=== PATIENT | male | born 1955 | race Caucasian/White ===

== ENCOUNTER 2023-09-03 08:37 | Outpatient (REF) | payer MEDICARE, SELFPAY ==
--- NOTE | ~2023-09-03 | XR_ITS ---
EXAMINATION: XR SHOULDER, RIGHT CLINICAL INFORMATION: Pain in right shoulder following fall COMPARISON: None available. TECHNIQUE: AP external rotation, Grashey, scapular Y, and axillary views of the right shoulder. FINDINGS: There is no evidence of fracture or dislocation. No changes of degenerative osteoarthritis. There is minimal soft tissue calcification adjacent to the greater tuberosity suggestive for calcified tendinitis. Acromioclavicular joints revealed changes of mild osteoarthritis. The rest of soft tissues are normal. XR/XR shoulder RT min 2V IMPRESSION: Mild calcified tendinitis.
[2023-09-03 10:12] LABS: MANUAL DIFF FLAG NO
[2023-09-03 10:25] LABS: Basophils Absolute Auto 0.1 X10*3/uL (0.0-0.2); Basophils Percent Auto 0.6 % (0-2); Eosinophils Absolute Auto 0.3 X10*3/uL (0.0-0.4); Hematocrit 42.7 % (42.0-52.0); Hemoglobin 14.9 g/dl (14.0-18.0); Imm Gran Abs Auto 0.03 X10*3/uL (0.00-0.03); Imm Gran Pct Auto 0.3 % (0.0-0.4); Lymphocytes Absolute Auto 2.7 X10*3/uL (1.2-4.9); Lymphocytes Percent Auto 30.5 % (20-40); Mean Corpuscular HGB Conc 34.9 g/dl (31.0-36.0); Mean Corpuscular Volume 91.6 fL (80.0-98.0); Mean Platelet Volume 11.6 fL (9.4-12.4); Monocytes Absolute Auto 0.7 X10*3/uL (0.1-1.2); Monocytes Percent Auto 7.6 % (2-11); Neutrophils Absolute Auto 5.1 x10*3/uL (2.0-8.3); Platelet Count 172 X10*3/uL (160-400); Red Blood Count 4.66 X10*6/uL (4.60-5.80); Red Cell Distribution Width 12.5 % (11.0-16.0); White Blood Count 8.8 X10*3/uL (4.8-10.8)
[2023-09-03 10:44] LABS: Estimated Average Glucose 108 mg/dL; Hemoglobin A1c % 5.4 % (<6.0)
[2023-09-03 10:54] LABS: Anion Gap 12 (12-20); Blood Urea Nitrogen 15 mg/dL (9-16); Calcium 9.6 mg/dL (8.4-10.2); Carbon Dioxide 26 mmol/L (22-29); Chloride 106 mmol/L (96-108); Estimated Glomerular Filt Rate > 60; Glucose Random 99 mg/dL (60-115); Potassium 4.3 mmol/L (3.3-5.1); Sodium 140 mmol/L (135-145)
== END 2023-09-03 08:38 | disposition home or self-care (01) ==
LOC: HO.HMGCX 08:37
PROVIDERS: PCP Internal Medicine; Visit Provider Internal Medicine
DX: M25.511 Pain in right shoulder (principal); R73.09 Other abnormal glucose
CPT/HCPCS: 36415; 73030; 80048; 83036; 85025

== ENCOUNTER 2023-10-02 09:21 | Outpatient (AMB) | payer MEDICARE, SELFPAY ==
--- NOTE | 2023-10-02 09:22 | A.OFFVIS_ITS ---
Intake Visit Reasons: Right shoulder pain Intake Note: Homero is a 67 year old male who presents with complaints of progressively worsening right shoulder pain and weakness. The patient states that his shoulder pain began several years ago. He was told at that time that he has ?degenerative arthritis? in his right shoulder. The patient states that he aggravated his right shoulder several months ago when he fell directly onto it. Since that time he has had difficulty lifting his right hand above shoulder h eight. Has failed the last 6 weeks of conservative treatment. Has done physical therapy exercises which aggravated his pain. He has also tried Tylenol and anti-inflammatory medicines which gave him minimal relief. Allergies No Known Allergies Allergy (Verified 10/02/23 09:23) Medication List - Last Reconciled 10/02/23 by Trell Aragon MD apixaban (Eliquis) 5 mg PO BID aspirin (Adult Aspirin Regimen) 81 mg PO DAILY citalopram 20 mg PO DAILY furosemide 40 mg PO DAILY lisinopril 40 mg PO DAILY mirtazapine 15 mg PO BEDTIME potassium chloride ER 10 mEq PO BID Physical Exam Const Other: Well-nourished well-developed very friendly male awake alert and oriented x3 in no acute distress Extrem Other: Bilateral upper extremity examination shows good capillary refill, no skin lesions noted, normal sensation light touch Right shoulder examination shows full passive range of motion but limited active range of motion when compared to his left shoulder, 3/5 strength with richards praspinatus testing, positive impingement signs, tenderness over his acromioclavicular joint, no instability Results Reviewed Results Reviewed: X-rays of the patient's right shoulder taken previously show severe acromioclavicular joint narrowing, a type 2 acromion, no acute bony abnormalities Assessment & Plan Assessment & Plan (1) Right shoulder pain: Code(s): M25.511 - Pain in right shoulder Plan Mr. Calle presents with progressively worsening right shoulder pain and weakness most likely due to a full-thickness rotator cuff tear. Thus, I will send the patient for an MRI of his right shoulder for further evaluation. I will see him back once the MRI is completed to discuss the findings and treatment options. Will continue with his range of motion exercises in the meantime to prevent stiffness. Feel free to call me at any time should questions regarding his orthopedic management arise. Thank you very much for asking me to see this very friendly gentleman. I spent 20 minutes in reviewing the patient's records and imaging studies, seeing the patient and documenting in the medical record. Orders: Orders MR shoulder RT wo con Today M25.311 - Other instability, right shoulder Coding Level of Care Code New Pt Level 3 (32291) Diagnoses Right shoulder pain M25.511
== END 2023-10-02 09:44 | disposition home or self-care (01) ==
PROVIDERS: PCP Internal Medicine; Visit Provider Orthopaedic Surgery
DX: M25.511 Pain in right shoulder (principal)
CPT/HCPCS: 99203

== ENCOUNTER → 2023-10-02 09:21 | Outpatient (BNVA) | payer MEDICARE, SELFPAY | PROVIDERS: PCP Internal Medicine; Visit Provider Orthopaedic Surgery | DX: M25.511 Pain in right shoulder (principal); M25.811 Other specified joint disorders, right shoulder | CPT/HCPCS: 99202 ==

== ENCOUNTER 2024-01-24 06:35 | Outpatient (REF) | payer MEDICARE, SELFPAY ==
[2024-01-24 10:10] LABS: MANUAL DIFF FLAG NO
[2024-01-24 10:11] LABS: Basophils Absolute Auto 0.1 X10*3/uL (0.0-0.2); Basophils Percent Auto 0.5 % (0-2); Eosinophils Absolute Auto 0.3 X10*3/uL (0.0-0.4); Hematocrit 42.7 % (42.0-52.0); Hemoglobin 14.3 g/dl (14.0-18.0); Imm Gran Abs Auto 0.03 X10*3/uL (0.00-0.03); Imm Gran Pct Auto 0.3 % (0.0-0.4); Lymphocytes Absolute Auto 2.6 X10*3/uL (1.2-4.9); Mean Corpuscular HGB Conc 33.5 g/dl (31.0-36.0); Mean Corpuscular Hemoglobin 31.6 pg (27.0-33.0); Mean Corpuscular Volume 94.3 fL (80.0-98.0); Mean Platelet Volume 11.3 fL (9.4-12.4); Monocytes Absolute Auto 0.8 X10*3/uL (0.1-1.2); Monocytes Percent Auto 7.9 % (2-11); Neutrophils Absolute Auto 6.8 x10*3/uL (2.0-8.3); Neutrophils Percent Auto 64.3 % (45-73); Platelet Count 188 X10*3/uL (160-400); Red Blood Count 4.53 X10*6/uL (4.60-5.80); Red Cell Distribution Width 12.7 % (11.0-16.0); White Blood Count 10.6 X10*3/uL (4.8-10.8)
[2024-01-24 10:56] LABS: Alanine Aminotransferase 68 U/L (0-40); Albumin Level 4.3 g/dL (3.5-5.0); Alkaline Phosphatase 71 U/L (39-117); Anion Gap 14 (12-20); Aspartate Amino Transferase 41 U/L (5-37); Bilirubin Total 0.6 mg/dL (0.0-1.0); Blood Urea Nitrogen 13 mg/dL (9-16); Calcium 9.7 mg/dL (8.4-10.2); Carbon Dioxide 27 mmol/L (22-29); Chloride 106 mmol/L (96-108); Cholesterol 195 mg/dL (<200); Estimated Glomerular Filt Rate > 60; Glucose Fasting 107 mg/dL (60-99); HDL Cholesterol 29 mg/dL (>40); LDL Cholesterol Calculated 108 mg/dL (<100); Potassium 4.1 mmol/L (3.3-5.1); Sodium 143 mmol/L (135-145); Total Protein 7.4 g/dL (6.5-8.0); Triglycerides 293 mg/dL (<150)
[2024-01-24 11:01] LABS: Prostate Specific Antigen 0.64 ng/mL (<0.05-4.0)
--- OUTSIDE RECORDS SUMMARY | 2024-01-29 04:37 | XMS_ITS | Continuity of Care Document ---
Author Organization [facility] Cardiac Jose salvatore Address [address] [place] [address] [place] [address]- Care Team Providers Care Tank Processor Name Role Phone Angelika PERRY, Giacomo Rollins Primary Care Physician [place] [facility] [place]23 - 01/[place]/24 [facility] Cardiac Surgery [address] [place] [address] Drive [address] [place], [place] [id number] Encounter Type: Triage Allergies, Adverse Reactions, Alerts Substance Criticality Severity Reaction Reaction Severity Status Wellbutrin Active Medications apixaban 5 mg oral tablet 1 tablet = 5 mg, By Mouth, 2 times a day, # 60 tablet, 0 Refills, Maintenance, 11/05/19 11:01:00 AM EDT, Tablet Start Date: 11/05/19 Status: Ordered Quantity: 60.0 Unit: tablet Repeat number: 1 aspirin 81 mg oral delayed release tablet 81 mg, By Mouth, Daily, # 30 tablet, Refills 0, Tot. Refills 0, Maintenance, 12/07/19 12:46:00 PM EDT, Route to Pharmacy Electronically, [facility], 178, cm, 12/07/19 12:46:00 EDT, Height, 87.1, kg, 12/01/19 5:58:00 EDT, Dry Weight Start Date: 12/07/19 Status: Ordered Quantity: 30.0 Unit: tablet Repeat number: 1 atorvastatin 80 mg oral tablet 1 tablet = 80 mg, By Mouth, Daily at bedtime, # 30 tablet, 0 Refills, Maintenance, 12/07/19 4:48:00PM EDT, Tablet, [facility] #[id number], 178, cm, 12/07/19 12:46:00 EDT, Height, 87.1, kg, 12/01/19 5:58:00 EDT, Dry Weight Start Date: 12/07/19 Status: Ordered Quantity: 30.0 Unit: tablet Repeat number: 1 Lasix 40 mg oral tablet 40 mg, 1, tablet, By Mouth, 2 times a day before breakfast and dinne, # 60 tablet, Refills 0, Tot. Refills 0, Maintenance, 12/07/19 12:46:00 PM EDT, Route to Pharmacy Electronically, [facility], 178, cm, 12/07/19 12:46:00 EDT, Height, 87.1, kg, 12/01/19 5:58:00 EDT, Dry Weight Start Date: 12/07/19 Status: Ordered Quantity: 60.0 Unit: tablet Repeat number: 1 lisinopril 20 mg oral tablet 40 mg, 2, tablet, By Mouth, Daily, # 30 tablet, Refills 0, Maintenance, 11/05/19 11:03:00 AM EDT Start Date: 11/05/19 Status: Ordered Quantity: 30.0 Unit: tablet Repeat number: 1 Multivitamin Daily, 0 Refills, Maintenance, 11/05/19 11:03:00 AM EDT Start Date: 11/05/19 Status: Ordered Repeat number: 1 potassium chloride 10 mEq oral tablet, extended release 2 tablet = 20 mEq, By Mouth, 2 times a day, # 120 tablet, 0 Refills, Maintenance, 12/07/19 12:46:00PM EDT, ER Tablet, [facility], 178, cm, 12/07/19 12:46:00 EDT, Height, 87.1, kg, 12/01/19 5:58:00 EDT, Dry Weight Start Date: 12/07/19 Status: Ordered Quantity: 120.0 Unit: tablet Repeat number: 1 Problem List Condition Confirmation Course Effective Dates Status Health St atus Informant Ascending aortic aneurysm dilatation Confirmed Active severe Aortic stenosis Confirmed Active CAD (coronary artery disease), 60% ostial RCA lesion. Confirmed Active Sinus bradycardia on ECG Confirmed 01/02/02 Active Ex-smoker, kate 2004 Confirmed Active Hard of hearing, bilateral hearing aids Confirmed Active HTN (hypertension) Confirmed Active Anxiety and depression Confirmed Active Left upper lobe pulmonary nodule measuring 3 mm Confirmed Active Obese class I Confirmed Active OA (osteoarthritis) of right shoulder Confirmed Active Atrial fibrillation and flutter Confirmed Active Pulmonary HTN Confirmed Active Patient Care team information Care Team Personnel Name: Kevin Vasques RN Position: S RN Member Role: Primary Care Nurse Name: Angelika PERRY, Giacomo Rollins Position: Reference Physician Member Role: PCP Address: [address] [place] [id number] Telecom: Name: Adri Solares RN Position: S RN Member Role: Primary Care Nurse Care Team Related Persons Name: KARLOS CASH Insurance Providers Guarantor name: LIYAH SHAILESH Health Plan Information #: 1 Payer: MEDICARE PART B OUTPT Member Number: NA Policy Number: NA Group Number: NA Health Plan Information #: 2 Payer: MEDEX Member Number: NA Policy Number: NA Group Number: NA
--- OUTSIDE RECORDS SUMMARY | 2024-01-29 04:37 | XMS_ITS | Continuity of Care Document ---
Author Organization [facility] Cardiac Jose salvatore Address [address] [place] [address] [place] [address]- Care Team Providers Care Manager Business Process Name Role Phone Angelika PERRY, Giacomo Rollins Primary Care Physician Encounter [facility] [place] Date(s): 12/26/23 - 01/25/24 [facility] Cardiac Surgery [address] [place] [address] Drive [address] [place], [place] [address] Encounter Type: Triage Allergies, Adverse Reactions, Alerts [...] 12:46:00 PM EDT, Route to Pharmacy Electronically, [facility], 178, cm, 12/07/19 12:46:00 EDT, Height, 87.1, kg, 12/01/19 5:58:00 EDT, Dry Weight Start Date: 12/07/19 Status: Ordered Quantity: 30.0 Unit: tablet Repeat number: 1 atorvastatin 80 mg oral tablet 1 tablet = 80 mg, By Mouth, Daily at bedtime, # 30 tablet, 0 Refills, Maintenance, 12/07/19 4:48:00PM EDT, Tablet, [facility] #[id number], 178, cm, 12/07/19 12:46:00 EDT, Height, 87.1, kg, 12/01/19 5:58:00 EDT, Dry Weight Start Date: 12/07/19 Status: Ordered Quantity: 30.0 Unit: tablet Repeat number: 1 Lasix 40 mg oral tablet 40 mg, 1, tablet, By Mouth, 2 times a day before breakfast and dinne, # 60 tablet, Refills 0, Tot. Refills 0, Maintenance, 12/07/19 12:46:00 PM EDT, Route to Pharmacy Electronically, [facility], 178, cm, 12/07/19 12:46:00 EDT, [...] Refills, Maintenance, 12/07/19 12:46:00PM EDT, ER Tablet, [facility], 178, cm, 12/07/19 12:46:00 EDT, [...] Position: Reference Physician Member Role: PCP Address: [address] [place] [id number] Telecom: Name: Adri Solares RN Position: S [...]
--- OUTSIDE RECORDS SUMMARY | 2024-01-29 04:37 | XMS_ITS | Continuity of Care Document ---
Author Organization [facility] Cardiac Jose salvatore Address [address] [place] [address] [place] [address]- Care Team Providers Care Business Resiliency Manager Name Role Phone Angelika PERRY, Giacomo Rollins Primary Care Physician [phone] Encounter [facility] [place](s[place] 12/30/23 - 01/06/24 [facility] Cardiac Surgery [address] [place] [address] Drive [address] [place] [address]- Attending Physician: Rd Galloway MD Referring Physician: Sandy Mccullough MD Encounter Type: Office Visit Allergies, Adverse Reactions, Alerts Substance Criticality Severity [...] 12:46:00 PM EDT, Route to Pharmacy Electronically, [facility], 178, cm, 12/07/19 12:46:00 EDT, Height, 87.1, kg, 12/01/19 5:58:00 EDT, Dry Weight Start Date: 12/07/19 Status: Ordered Quantity: 30.0 Unit: tablet Repeat number: 1 atorvastatin 80 mg oral tablet 1 tablet = 80 mg, By Mouth, Daily at bedtime, # 30 tablet, 0 Refills, Maintenance, 12/07/19 4:48:00PM EDT, Tablet, [facility][id number], 178, cm, 12/07/19 12:46:00 EDT, Height, 87.1, kg, 12/01/19 5:58:00 EDT, Dry Weight Start Date: 12/07/19 Status: Ordered Quantity: 30.0 Unit: tablet Repeat number: 1 Lasix 40 mg oral tablet 40 mg, 1, tablet, By Mouth, 2 times a day before breakfast and dinne, # 60 tablet, Refills 0, Tot. Refills 0, Maintenance, 12/07/19 12:46:00 PM EDT, Route to Pharmacy Electronically, [facility], 178, cm, 12/07/19 12:46:00 [...] Refills, Maintenance, 12/07/19 12:46:00PM EDT, ER Tablet, [facility], 178, cm, 12/07/19 12:46:00 [...] flutter Confirmed Active Pulmonary HTN Confirmed Active Vital Signs Most recent to oldest [Reference Range]: 1 2 Height 178 cm (01/01/24 8:38 AM) 178 cm (12/30/23 2:48 PM) Weight 104.9 kg (01/01/24 8:38 AM) 104.9 kg (12/30/23 2:48 PM) Oxygen Saturation [94-100 %] 95 % (12/30/23 2:48 PM) Pulse Rate [55-90 bpm] 75 bpm (12/30/23 2:48 PM) Body Mass Index [18.5-24.99 kg/m2] 33.11 kg/m2 *>HHI* (12/30/23 2:48 PM) Blood Pressure [90-138/55-84 mm Hg] 106/ 62mm Hg (12/30/23 2:48 PM) Respiratory Rate [16-30 br/min] 16 br/mi n (12/30/23 2:48 PM) Temperature [96.8-100.4 DegF] 100.2 DegF (12/30/23 2:48 PM) Mode of Delivery (Oxygen) Room air (12/30/23 2:48 PM) Blood pressure sites Arm, left (12/30/23 2:48 PM) Temperature Route Oral (12/30/23 2:48 PM) Dry Weight 104.09 kg (12/30/23 2:48 PM) Weight Obtained Via Patient/family state d (12/30/23 2:48 PM) Dry Weight Obtained Via Patient/family s tated (12/30/23 2:48 PM) Cardiac surgery Outpatient Note * Nilesh PERRY, Rd Hoffmann: PERFORM, MODIFY Event Display: Cardiac Surgery Note Office Authored Date: Patient: ??LIYAH CALLE ? Age:??68 Years?Sex:??Male?:??1955?? Provider Clinical Summary he is doing well since the surgical AVR, replacement of the ascending aorta, CABG x 1, and left sided MAZE procedure in November of 2019.?? On exam he has a low grade temperature of unclear etiology. The size of the aortic root and the aortic arch are both 4.2 cm and unchanged from the most previousCT scan in November of 2020.?? We would recommend a repeat echocardiogram to assess the degree of bioprosthetic valve??stenosis.?? We would also recommend an EKG to see if he is in NSR.?? We would recommend a repeat noncontrast CT scan in 2 years. Chief Complaint asc aoritc aneurysm He has no specific complaints History of Present Illness Mr. Calle has a history of atrial??fibrillation,??CAD, bicuspid aortic??valve with aortic stenosis and ascending aortic aneurysm. He??is now 4 years postop from a surgical AVR (25 mm Magna Ease), replacement of the ascending aorta (32 mm Gelweave tube graft), CABG x 1 (SV??to the RCA) and left sided MAZE procedure (PVI and IMANI ligation) in November of 2019.?? He is currently doing well with no specific complaints. He reports that he has no exercise restrictions and has no recent history ofchest discomfort or dyspnea.?? He has not see a tax advisor recently. A recent??surveillance CT scans shows that the aortic root at the level of the aortic sinuses measures 4.2 cm and is unchanged from the most recent chest CT scan in November of 2020. The aortic arch also measures 4.2 cm and is unchanged from the previous scan. It is unclear if he has had a recent EKG or echocardiogram. Review of Systems He continues to be on Eliquis. There has been no recent history of fever, chills, cough or nasal congestion. Physical Exam Vitals & Measurements T:??100.2?F?? HR:??75??(Peripheral)?? RR:??16?? BP:??106/62?? SpO2:??95%?? HT:??178??cm?? WT:??104.9??kg?? BMI:??33.11? General:?? Alert, pleasant ? HEENT: EOM full. Sclera non icteric ? Neck: Supple. No masses. No bruits + JVD to 8 cm ? Resp: Lungs are clear to auscultation ? CV:?? Right radial pulse 2+ and regular. Grade III/ systolic murmur heard loudest at the right and left sternal borders and radiating to the left carotid ? Extrem: No edema. ? Neuro:?? No focal deficits Assessment/Plan He has mild enlargement of the aortic root and the aortic arch which have not changed in size sincethe most previous CT scan 3 years ago. We would recommend a repeat noncontrast CT scan in??2 years.?? On exam he has a low grade fever with no overt signs of a respiratory illness. 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 We would recommend an echocardiogram and an EKG.?? If the EKG documentsNSR then we would advocate discontinuing the Eliquis. Patient Instructions Avoid heavy lifting and continue to keep the blood pressure within normal limits. Follow-Up Appointments No qualifying data available No heavy lifting. Avoid isometric exercises. Total Time Spent 45 minutes Problem List/Past Medical History Ongoing Anxiety and depression Ascending aortic aneurysm dilatation Atrial fibrillation and flutter CAD (coronary artery disease), 60% ostial RCA lesion. Ex-smoker, kate 2004 Hard of hearing, bilateral hearing aids HTN (hypertension) Left upper lobe pulmonary nodule measuring 3 mm OA (osteoarthritis) of right shoulder Obese class I Pulmonary HTN severe Aortic stenosis Sinus bradycardia on ECG Procedure/Surgical History ???Echocardiogram (10/01/2019) Medications apixaban 5 mg oral tablet, 5 mg= 1 tablet, By Mouth, 2 times a day aspirin 81 mg oral delayed release tablet, 81 mg, By Mouth, Daily atorvastatin 80 mg oral tablet, 80 mg= 1 tablet, By Mouth, Daily at bedtime Lasix 40 mg oral tablet, 40 mg= 1 tablet, By Mouth, 2 times a day before breakfast and dinne lisinopril 20 mg oral tablet, 40 mg= 2 tablet, By Mouth, Daily Multivitamin, Daily potassium chloride 10 mEq oral tablet, extended release, 20 mEq= 2 tablet, By Mouth, 2 times a day Allergies Wellbutrin Patient Care team information Care Team Personnel Name: Kevin Vasques RN Position: S RN Member Role: Primary Care Nurse Name: Giacomo Carney MD Position: Reference Physician Member Role: PCP Address: [address] [place], [place] [address] Telecom: Name: Adri Solares RN Position: S RN Member Role: Primary Care Nurse Care Team Related Persons Name: KARLOS CALLE Insurance Providers Guarantor name: LIYAH CALLE Health Plan Information #: 2 Payer: MEDEX Member Number: [id number] Policy Number: NA Group Number: NA Health Plan Information #: 1 Payer: MEDICARE PART B OUTPT Member Number: [id number] Policy Number: NA Group Number: NA
== END 2024-01-24 06:36 | disposition home or self-care (01) ==
LOC: HO.HMGCLDS 06:35
PROVIDERS: PCP Internal Medicine; Visit Provider Internal Medicine
DX: R53.83 Other fatigue (principal); Z12.5 Encounter for screening for malignant neoplasm of prostate; E78.5 Hyperlipidemia, unspecified
CPT/HCPCS: 36415; 80053; 80061; 84153; 85025

== ENCOUNTER 2024-05-12 07:44 | Outpatient (REF) | payer MEDICARE, SELFPAY ==
[2024-05-12 11:16] LABS: Alanine Aminotransferase 43 U/L (0-40); Albumin Level 4.4 g/dL (3.5-5.0); Alkaline Phosphatase 68 U/L (39-117); Aspartate Amino Transferase 41 U/L (5-37); Bilirubin Direct 0.3 mg/dL (0.0-0.5); Bilirubin Total 0.8 mg/dL (0.0-1.0); Cholesterol 96 mg/dL (<200); HDL Cholesterol 36 mg/dL (>40); LDL Cholesterol Calculated 39 mg/dL (<100); Total Protein 7.3 g/dL (6.5-8.0); Triglycerides 105 mg/dL (<150)
== END 2024-05-12 07:45 | disposition home or self-care (01) ==
LOC: HO.HMGCLDS 07:44
PROVIDERS: PCP Internal Medicine; Visit Provider Internal Medicine
DX: E78.5 Hyperlipidemia, unspecified (principal)
CPT/HCPCS: 36415; 80061; 80076